=== PATIENT | female | born 1990 | race Caucasian/White ===

== ENCOUNTER → 2020-07-19 | Day surgery (SDC) | payer OTHER ==
[~2020-07-19] MED LIST: ACYCLOVIR800 MG PO; COLACE 100MG C100 MG PO; COLACE100 MG PO; CYCLOBENZAPRINE5 MG PO; FEOSOL325 MG PO; IBUPROFEN600 MG PO; IBUPROFEN800 MG PO; LORTAB 5-325 M1 EACH PO; MACROBID 100 M100 MG PO; NAPROXEN SODIU550 MG PO; NORCO 5-325 TA1 EACH PO; PERCOCET 5-3251 EACH PO; PREDNISONE20 MG PO; PRENATAL VITAM1 EAC8 PO; VALTREX1000 MG PO; VITAMIN C PO; VITAMIN D PO; VITAMIN D250 MCG PO; VYVANSE30 MG PO; ZINC PO; ZINC50 M2 PO
[2020-07-19 10:38] LABS: HEMOGLOBIN 12.9 gm/dl (12.3-15.3); RED BLOOD COUNT 4.63 M/UL (4.00-5.10)
== END | disposition home or self-care (01) ==
LOC: OR 08:25
PROVIDERS: Obstetrics & Gynecology
PROC: 0WQNXZZ Repair Female Perineum, External Approach (ICD-10-PCS; 2020-07-19)
PROC: 0UT Female Reproductive System, Resection (ICD-10-PCS; principal; 2020-07-19 12:00)
DX: N90.89 Other specified noninflammatory disorders of vulva and perineum (principal); N81.89 Other female genital prolapse; F17.210 Nicotine dependence, cigarettes, uncomplicated; F41.9 Anxiety disorder, unspecified; F90.9 Attention-deficit hyperactivity disorder, unspecified type; Z79.899 Other long term (current) drug therapy; Z20.828 Contact with and (suspected) exposure to other viral communicable diseases
CPT/HCPCS: 81001; 84703; 85025; J0690; J1100; J2001; J2250; J2405; J2704; J2765; J2795; J3010; J7120